=== PATIENT | female | born 1955 | race Caucasian/White ===

== ENCOUNTER → 2024-05-19 | Outpatient (CLI) | payer MEDICARE | END | disposition home or self-care (01) | LOC: RAD 12:07 | PROVIDERS: ATTEND Nurse Practitioner Family | DX: K44.9 Diaphragmatic hernia without obstruction or gangrene (principal); R10.13 Epigastric pain; M19.09 Primary osteoarthritis, other specified site | CPT/HCPCS: 74019 ==

== ENCOUNTER 2024-09-21 18:21 | Emergency (ER) | payer SELFPAY ==
[2024-09-21] VITALS (8 sets, daily range): BP systolic 156–174; BP diastolic 80–118; PULSE 85–100; RESP 18; TEMP 98.2; O2SAT 91–93
[~2024-09-21] VITALS: Ht 167.6 cm; Wt 86.6 kg
[2024-09-21] MEDS ORDERED: SUBLIMAZE 100MCG/2ML ONE (19:35)
[2024-09-21] MEDS: SUBLIMAZE 100MCG/2ML IV STA (19:43)
[2024-09-21] MEDS ORDERED: ZOFRAN ONE (20:07)
[2024-09-21 20:09] LABS: BASOPHIL % 0.4 % (0.1-1.2); EOSINOPHIL # 0.5 10^3/uL (0.0-0.2); EOSINOPHIL % 5.1 % (0.0-5.0); HEMOGLOBIN 13.8 g/dL (12.0-15.0); LYMPHOCYTES % 11.6 % (24.0-44.0); MEAN CORP HGB 33.3 pg (26-34); MEAN CORP HGB CONCENTRATION 32.1 g/dL (33-36.5); MEAN CORP VOLUME 103.9 fL (78-100); MONOCYTES # 0.4 10^3/uL (0.3-0.8); MONOCYTES % 3.8 % (5.0-12.0); NEUTROPHIL # 8.2 10^3/uL (1.8-7.7); NEUTROPHILS % 78.9 % (41.0-85.0); PLATELET COUNT 249 10^3/uL (150-400); RED BLOOD CELL 4.14 10^6/uL (4.00-5.20); WHITE BLOOD CELL 10.4 10^3/uL (4.5-11.0)
[2024-09-21] MEDS: ZOFRAN IV STA (20:10)
[2024-09-21 20:11] LABS: +ADD MANUAL DIFF(NO CHRG) NO
[2024-09-21 20:26] LABS: ALBUMIN(ML) 3.4 g/dL (3.4-5.0); ANION GAP 10.4; BUN/CREATININE RATIO 13.11 (10.0-20.0); CALCIUM 8.8 mg/dL (8.4-10.5); CREATININE SERUM 1.22 mg/dL (0.59-1.40); EST GFR, NON-AA 43.7 (>/=60); POTASSIUM 4.4 mmol/L (3.6-5.2); PROTHROMBIN PROTIME 10.1 SEC (9.7-11.6)
== END 2024-09-21 22:41 | disposition short-term general hospital (02) ==
LOC: ER 18:21 → EDBD 18:21 → ER 22:41
DX: S72.011A Unspecified intracapsular fracture of right femur, initial encounter for closed fracture (principal); S70.01XA Contusion of right hip, initial encounter; Z88.0 Allergy status to penicillin; Z88.8 Allergy status to other drugs, medicaments and biological substances; W01.0XXA Fall on same level from slipping, tripping and stumbling without subsequent striking against object, initial encounter; Y93.89 Activity, other specified; Y92.009 Unspecified place in unspecified non-institutional (private) residence as the place of occurrence of the external cause; Y99.8 Other external cause status
CPT/HCPCS: 99285; 96374; 72192; 96375; 80053; 85025; 36415; 85610; 85730; J2405; J3010